=== PATIENT | female | born 1960 | race Caucasian/White ===

== ENCOUNTER → 2016-05-17 | Outpatient (CLI) | payer OTHER ==
[~2016-05-17] MED LIST: IOPAMIDOL (ISOVUE-300) 100 ML BTL IV ONE
--- NOTE | 2016-05-17 16:59 | CT ---
CT Scan of the Abdomen and Pelvis (With Contrast) at 1251 hours History: K43.9, ventral hernia, multiple abdominal surgeries. Technique: Axial computed tomographic images of the abdomen and pelvis were obtained, with the uneve ntful intravenous administration of 90 mL Isovue-300 contrast. Additional oral contrast given. Dose reduction techniques were utilized. Comparison: CT January 2016. CT Abdomen Findings: Lung bases: Patchy atelectasis bilateral lower lobes, without pleural effusion. Small hiatal hernia. Large right-sided periumbilical abdominal wall hernia, with a defect measuring 3 cm, and 7 cm of small bowel extending through the hernia defect into the subcutaneous soft tissues. No evidence of small bowel obstruction, wall thickening, or strangulation. Liver: Fatty infiltration in the medial segment of the left lobe of the liver, similar to previous s tudies. Biliary system: No obstruction. Spleen: Normal. Pancreas: Normal. Adrenals: Normal. Kidneys: No obstruction or solid masses.. Abdominal Aorta: Mild atherosclerotic aorta, without aneurysm. No bowel obstruction, ascites, or significant retroperitoneal lymphadenopathy. Oral contrast in the stomach and small bowel extending into the colon, without obstruction. CT Pelvis Findings: Postsurgical scarring in the anterior deep subcutaneous soft tissues again noted . The bladder is unremarkable. No inguinal hernia. No significant adenopathy. No distal bowel obs truction. A few colonic diverticula, without diverticulitis. The appendix appears normal, without i nflammatory changes. No adnexal masses. Impression: 1. Right-sided periumbilical abdominal wall hernia, with small bowel loops extending through the her andrés defect. Recommend surgical consult. 2. No CT evidence of appendicitis, abscess, or bowel obstruction. 3. Small hiatal hernia.
== END ==
LOC: FIMAGING 12:08
PROVIDERS: ATTEND Internal Medicine
DX: K42.9 Umbilical hernia without obstruction or gangrene (principal)
CPT/HCPCS: Q9967

== ENCOUNTER → 2016-12-24 | Outpatient (CLI) | payer OTHER | LOC: FIMAGING 12:47 | PROVIDERS: ATTEND Internal Medicine | DX: Z12.31 Encounter for screening mammogram for malignant neoplasm of breast (principal); Z80.3 Family history of malignant neoplasm of breast | CPT/HCPCS: G0202 ==

== ENCOUNTER 2017-04-11 03:49 | Observation (INO) | payer OTHER ==
--- NOTE | 2017-04-11 03:52 | EDPHY ---
H & P HPI/ROS: HPI CHIEF COMPLAINT: Abdominal pain, nausea, vomiting HISTORY OF PRESENT ILLNESS: Patient is a pleasant 56-year-old female, history of multiple SBO, extensive abdominal surgery, presents emergency room at 4 o' clock in the morning with nausea/vomiting and abdominal pain. Patient reports around 930 year 10:00 p.m. this evening she developed some abdominal discomfort with associated nausea. She started vomiting around 1:00 a.m. and then again at 2:00 a.m. and then again at 3:00 a.m.. Due to the persistent vomiting and abdominal discomfort he decided come the emergency room as she thinks she may have a bowel obstruction. She does report that approximately 2 hr ago she did have a loose bowel movement. Additionally she ate and apple, cheese, pumpkin seeds and gummy bears this evening. Unclear if this is causing her GI upset. Denies any fever recent illness. Denies cough. Denies urinary symptoms. Past Medical History: History of small-bowel obstruction, multiple abdominal surgeries, hernia repair, fistula , partial colectomy Past Surgical History: Multiple abdominal surgeries Social History: Denies daily use of drugs alcohol tobacco. Family History: Noncontributory. ROS REVIEW OF SYSTEMS: A comprehensive 10 point review of systems is otherwise negative aside from elements mentioned in the history of present illness. Exam Constitutional appears nontoxic triage nursing summary reviewed, vital signs reviewed, awake/alert. Eyes normal conjunctivae and sclera, EOMI, PERRLA. HENT normal inspection, atraumatic, moist mucus membranes, no epistaxis, neck supple/ no meningismus, no raccoon eyes. Respiratory clear to auscultation bilaterally, normal breath sounds, no respiratory distress, no wheezing. Cardiovascular rate normal, regular rhythm, no murmur, no edema, distal pulses normal. Gastrointestinal soft abdomen, nondistended, hypoactive bowel sounds, multiple incision lines that are old. I do not appreciate significant tenderness or peritoneal signs on exam but is mildly tender throughout. Genitourinary no CVA tenderness. Musculoskeletal no midline vertebral tenderness, full range of motion, no calf swelling, no tenderness of extremities, no meningismus, good pulses, neurovascularly intact. Skin pink, warm, & dry, no rash, skin atraumatic. Neurologic awake, alert and oriented x 3, AAOx3, moves all 4 extremities equally, motor intact, sensory intact, CN II-XII intact, normal cerebellar, normal vision, normal speech. Psychiatric normal mood/affect. Heme/Lymph/Immune no lymphadenopathy. Differential diagnosis includes but is not limited to and in no particular order : Bowel obstruction, appendicitis, gallbladder disease, diverticulitis, colitis , enteritis, perforated viscus, gastritis, GERD, esophagitis, urinary tract infection, pyelonephritis, kidney stones Medical Decision Making: Plan for this patient IV establishment IV fluid bolus 1 L normal saline, IV Zofran 4 mg for nausea, IV Dilaudid 1 mg for pain control , check basic blood work including lactic acid, UA, coags, will proceed with CT scan abdomen pelvis with IV contrast rule out acute obstruction or intra- abdominal process. Re-evaluation: 0535AM: CT scan abdomen pelvis with IV contrast called to me by Dr. Taveras. Shows a very large ventral abdominal wall hernia with bowel containing in this hernia there appears to be a kinking of bowel as it enters the hernia with distal small-bowel that is completely decompressed and proximal small bowel that is dilated. This concerning for mechanical bowel obstruction. No free air no free fluid. 0535AM: Will consult General surgery due to most likely mechanical bowel obstruction from a large ventral abdominal wall hernia. 0535AM: Patient has not had any vomiting here. Stomach is decompressed on CT scan. Patient has received IV fluids, Zofran and Dilaudid. She is resting at this time. Lactic acid was noted to be slightly elevated. Will repeat after IV fluids. Plan will be for admission to the hospital for small-bowel obstruction with surgical evaluation. 0540: Spoke with General surgery Dr. Winkler will see and evaluate the patient. 0604AM: Spoke with Odin Fletcher who will admit her to medicine service. Surgical consult. NPO. 0636AM: Dr. Winkler seen evaluated the patient. She is able to gently reduce this large right-sided ventral hernia. She is resting comfortably at this time. Patient be admitted to the hospitalist service for IV fluids and p.o. pain control and observation. Source: Patient - Medical/Surgical History Hx Asthma: No Hx Chronic Respiratory Disease: No Hx Diabetes: No Hx Cardiac Disease: No Hx Renal Disease: No Hx Cirrhosis: No Hx Alcoholism: No Hx HIV/AIDS: No Hx Splenectomy or Spleen Trauma: No Other PMH: pmh: hernias, uterine CA 2013. psh: hysterectomy, RECTAL FISTULA repair, repair of bladder rupture and fistula, hernia repairX3, full abd mesh for hernias x2, colectomy - Social History Smoking Status: Never smoked Constitutional: Initial Vital Signs Temperature (C) 36.5 C 04/11/17 03:51 Heart Rate 99 04/11/17 03:51 Respiratory Rate 20 04/11/17 03:51 Blood Pressure 140/81 H 04/11/17 03:51 O2 Sat (%) 90 L 04/11/17 03:51 O2 Delivery Mode Room Air O2 (L/minute) 2 Allergies/Adverse Reactions: adhesive tape Allergy (Verified 04/11/17 07:45) Sulfa (Sulfonamide Antibiotics) Allergy (Verified 04/11/17 07:45) Rash Home Medications: Medication Instructions Recorded metroNIDAZOLE 0.75% [Metrocream 1 keshav TP BID #0 cream 01/23/16 0.75%] Acetaminophen [Tylenol 325mg (*)] 325 mg PO DAILY PRN 04/11/17 Cholecalciferol Vit D3 [Vitamin D3 1,000 units PO DAILY 04/11/17 (*)] Multivitamins [Multivitamin (*)] 1 each PO DAILY 04/11/17 [place]-3 Fatty Acids [Fish Oil 1000 1,000 mg PO DAILY 04/11/17 mg (*)] Psyllium Husk (with Sugar) 1 each PO HS 04/11/17 [Metamucil Packet] Medical Decision Making - Data Points Laboratory Results: Laboratory Results 04/11/17 04:22 04/11/17 04:22 Medications Given: Discontinued Medications Acetaminophen (Tylenol) 650 mg PO Q4HRS PRN PRN Reason: Pain, Mild/Fever, Can Take PO Stop: 10/08/17 08:49 Last Admin: 04/11/17 10:58 Dose: 650 mg Hydromorphone HCl (Dilaudid) 1 mg IVP EDNOW ONE Stop: 04/11/17 03:56 Last Admin: 04/11/17 04:17 Dose: 1 mg Sodium Chloride (Ns) 1,000 mls @ 0 mls/hr IV EDNOW ONE; Wide Open PRN Reason: Protocol Stop: 04/11/17 03:56 Last Admin: 04/11/17 04:17 Dose: 1,000 mls Sodium Chloride (Ns) 1,000 mls @ 0 mls/hr IV ONCE ONE PRN Reason: Wide Open Stop: 04/11/17 04:34 Last Admin: 04/11/17 04:42 Dose: 1,000 mls Dextrose/Sodium Chloride (D5w 1/2 Ns) 1,000 mls @ 125 mls/hr IV CONT VIN Stop: 10/08/17 07:59 Last Admin: 04/11/17 08:07 Dose: 1,000 mls Metronidazole (Metrocream 0.75%) 1 keshav TP BID VIN Stop: 10/08/17 08:59 Last Admin: 04/11/17 11:05 Dose: Not Given Ondansetron HCl (Zofran) 4 mg IVP EDNOW ONE Stop: 04/11/17 03:56 Last Admin: 04/11/17 04:18 Dose: 4 mg Departure - Departure Disposition: [facility] Acute Clinical Impression: Abdominal wall hernia, SBO (small bowel obstruction) Abdominal pain Qualifiers: Abdominal location: unspecified location Qualified Code(s): R10.9 - Unspecified abdominal pain Condition: Fair
[2017-04-11] MEDS ORDERED: HYDROmorphONE/DILAUDID 1 MG/ML INJ IVP ONE (03:55)
[2017-04-11] MEDS ORDERED: ONDANSETRON 4 MG/2 ML VIAL IVP ONE (03:55)
[2017-04-11] MEDS ORDERED: NS 1,000 ML IV ONE ×2 (03:55→04:33)
[2017-04-11 04:31] LABS: PLATELET COUNT 245 10^3/uL (150-400)
[2017-04-11] MEDS ORDERED: IOPAMIDOL (ISOVUE-300) 100 ML BTL ONE (04:31)
[2017-04-11 04:42] LABS: INR 0.84 (0.83-1.16); PROTIME(PATIENT) 11.7 SEC (12.0-15.0)
[2017-04-11] MEDS ORDERED: D5W 1/2 NS 1,000 ML IV SCH (08:00)
[2017-04-11] MEDS ORDERED: ONDANSETRON 4 MG/2 ML VIAL IVP PRN (08:50)
[2017-04-11] MEDS ORDERED: ACETAMINOPHEN 325 MG TAB PO PRN (08:50)
[2017-04-11] MEDS ORDERED: ONDANSETRON DISINTEGRATING 4 MG TAB PO PRN (08:50)
--- NOTE | 2017-04-11 08:50 | SOAPPROG ---
SOAP Progress Note Assessment/Plan: Assessment: Plan: 04/11/17 08:48 ventral hernia with small and large bowel involvement. Reduction in the ER may have been effective at reducing blockage. She knows she will eventually need this large symptomatic defect to be repaired. Surgical consult with Dr Winkler is pending. Prior surgery with Dr Tsang in [place]. Will await consult before trying clears. Consider abdominal wall binder for support if defect and pain symptoms remain to be improved. Subjective: The patient had intense RLQ pain with vomiting which eventually took her to the ER last night. She has had 6 total abdominal surgeries. Most recent was last spring for a large ventral hernia defect repair. Pain is currently much better. No sense of n/v at the moment. Last dose of pain medication was dilaudid 4 hours ago. No f/c Objective: Vital Signs Temp Pulse Resp BP Pulse Ox 36.8 C 91 16 118/89 H 95 04/11/17 06:52 04/11/17 06:52 04/11/17 06:52 04/11/17 06:52 04/11/17 06:52 04/10/17 04/11/17 04/12/17 05:59 05:59 05:59 Intake Total 0 Balance 0 PT 11.7 SEC (12.0-15.0) L 04/11/17 04:22 INR 0.84 (0.83-1.16) 04/11/17 04:22 Gen: pleasant, NAD, intermittently teary Lungs: CTAB Heart: RRR Abd + bs soft, mild-mod RLQ TTP at superior end of abdominal wall defect. no rebound or guarding LE's without edema CT--large ventral hernia defect with small and large bowel involvement. ICD10 Worksheet Patient Problems: Problems Problem Status Onset Abdominal pain Acute Abdominal wall hernia Acute Small bowel obstruction Acute
[2017-04-11] MEDS ORDERED: METRONIDAZOLE 0.75% 45 GM CREAM TP SCH (09:00)
--- NOTE | 2017-04-11 09:17 | GCON ---
[f rep st] CONSULTATION DATE OF CONSULTATION: 04/11/2017 CHIEF COMPLAINT: Abdominal pain. HISTORY OF PRESENT ILLNESS: This is a 56-year-old female, known to me from a hospitalization in late 2015. Briefly, at that point in time, had a small- bowel obstruction, likely secondary to a recent small-bowel resection and primary anastomosis. Since that time, she states that she has felt well. She followed up with her previous hernia surgeon down in [place], and actually had a repeat procedure in June of this year to fix her remaining ventral hernia. She states that since that time, she has felt well. She does endorse having a right-sided lower abdominal bulge since that procedure, and stated that it has not really changed since that time. She presents to the emergency department today complaining of right-sided abdominal pain adjacent to that bulge, in addition to nausea without vomiting. In the emergency department, she is tearful. She is here complaining of the pain which she describes as crampy and worse with palpation without radiation, 7 out of 10 in intensity at its worst. Other than that, she had a bowel movement at 2 a.m. today. She has not passed flatus since that time. She states that her nausea is improved with IV hydration and narcotic pain medication, but she still complains of pain. Other than that, she states that she feels well. She denies having any fevers or chills. 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 PAST SURGICAL HISTORY: Robotic-assisted total abdominal history with BSO, complicated by rectovaginal fistula. 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 She subsequently ended up having multiple ventral hernias, which have been repaired, one in December of 2015, and the most recent of which was in June of 2016. CURRENT MEDICATIONS: Reviewed. SOCIAL HISTORY: Denies tobacco use. Social drinker. She is . Her is at the bedside today, again. REVIEW OF SYSTEMS: A full 10-point review today was performed. PHYSICAL EXAM: VITAL SIGNS: Heart rate 91, blood pressure 118/89. She is currently 95% on room air, and her temperature is 36.8 degrees centigrade. CONSTITUTIONAL: She is teary-eyed but in no acute distress. She does not appear anxious. EYES: Her pupils are equal, round, reactive to light. Her extraocular movements are intact. EARS, NOSE, MOUTH, AND THROAT: She has dry mucous membranes. Her dentition is normal. Her hearing is normal. CARDIOVASCULAR: She has a regular rate and rhythm without murmurs. LUNGS: Clear to auscultation, without any palpable crepitus. GI: She has a large lower midline ventral hernia bulging into her right abdomen. I put her in gentle Trendelenburg in the emergency department, and successfully reduced the entire hernia contents back in. She has no rebound tenderness or guarding. Her midline incision is well healed. SKIN: Warm. Normal color. No rashes. MUSCULOSKELETAL: Full strength. No weakness. Normal joint range of motion. NEURO: She is alert and oriented x3. Her cranial nerves are intact. She has no weakness, no numbness. PSYCH: She is interacting appropriately. She is a little bit teary-eyed, but she is not anxious or encephalopathic. LYMPH, HEME, AND IMMUNOLOGIC: No appreciable lymphadenopathy appreciated. LABS: White blood cell count normal at 8, H and H 14 and 42. Chemistry unremarkable with the exception of an elevated glucose at 156. IMAGING STUDIES: CT scan of her abdomen and pelvis, the images of which were personally reviewed, show a large recurrent midline ventral hernia measuring approximately 8 x 7 cm, containing both small-bowel and colon. No free fluid. No free air. No signs of bowel compromise. ASSESSMENT AND PLAN: A 56-year-old female with recurrent ventral hernia, status post successful reduction of hernia in the emergency department. Given her successful reduction, I do not feel that she needs urgent operative intervention, as I was successfully able to reduce it and give her some relief in her pain. I do feel that she will need this addressed, but not on an urgent basis. At any rate, she also was to follow up with her surgeon in [place] to get his recommendations for definitive repair, as well. She will subsequently be admitted, as I do think she does have a little bit of a small-bowel obstruction, for hydration. I would give her ice chips only until she is ready to have a diet, which I do not think would be appropriate until she has a little bit more bowel function today, but I do anticipate that we will be able to discharge her within the next day or so, have her follow up with either me or her surgeon down in [place] for definitive hernia repair, given successful reduction and no signs of incarceration today. Will follow along with you during her hospitalization /[id number]/MODL MTDD
--- NOTE | 2017-04-11 09:27 | GHP ---
[f rep st] HISTORY AND PHYSICAL DATE OF ADMISSION: 04/11/2017 REASON FOR ADMISSION: Confirmed for small-bowel obstruction/right lower quadrant abdominal pain. HISTORY OF PRESENT ILLNESS: Ms. Main is a 56-year-old female with a complicated abdominal surgica l history. She has had previous surgeries x6 for various abdominal wall hernias. Most recently was last spring with Dr. Tsang in [place]. She had a large right-sided ventral hernia repair with exte nsive mesh for bolstering the defect. Unfortunately, last night she had gradual intensification of p ainful symptoms in the right lower quadrant area at the superior edge of her ventral hernia defect. This intensified. She had vomiting, eventually went to the ER. She had a CT which identified a copi ous quantity of small and some large bowel dipping into the ventral wall sac. This was attempted to be manually reduced in the ER with probable success. The patient has not had pain medicine in 4 hour s and currently feels better. She does not have fever or chills. No nausea or vomiting. She is not particularly hungry. She had several episodes of loose stool yesterday, but none since her current hospitalization. She currently feels more optimistic that this was a transient flare. She knows rachael t she will ultimately need her abdominal wall hernia defect fixed given the intermittent symptoms she is having. She is currently optimistic that she will hopefully be able to go home later today. PAST MEDICAL HISTORY: Surgery x6 in abdominal regions for various abdominal wall defects as noted ab alverto. She is otherwise fairly healthy. MEDICATION: List is currently supplements and topical medication for rosacea. FAMILY HISTORY: Mother had complicated intermittent abdominal pain but did not have hernia small def ects. SOCIAL HISTORY: She does not drink or smoke. She has been regular with exercises, improving her ove rall condition. She is . REVIEW OF SYSTEMS: GENERAL: No fever or chills. No unusual headaches. Denies any unusual nose, th roat or sinus congestion. Denies neck pain. Denies shortness of breath, cough, wheeze or congestion . No chest pain or palpitation. GI: As per HPI. Currently improved. Urinary, no current complain ts. SKIN: No acute issues. MUSCULOSKELETAL: No new complaints. PHYSICAL EXAM: VITAL SIGNS: Afebrile. Blood pressure between 118/89 to 146/92. Saturation between 90 room air and 95% on 3 L. Heart rate in the 90s, respiratory rate 16 to 20. GENERAL: Pleasant f emale, intermittently teary. No current distress. HEENT: Oropharynx benign. NECK: Without masses . No jugular venous pressure elevation. LUNGS: Clear without crackles, wheeze or congestion, cough is dry. HEART: Regular rate and rhythm without murmur. ABDOMEN: Positive bowel sounds. Soft. M ild to moderate tenderness in the right lower quadrant region. No clear guarding or rebound. BREAST /PELVIC: Deferred. SKIN: Warm, dry, intact. LOWER EXTREMITIES: Without edema. LABORATORY DATA: Normal white blood cell count. Urinalysis is negative. INR is normal. Initial la ctic acid was elevated and recheck was normal. Metabolic panel aside from mildly elevated glucose an d mildly elevated ALT is normal. Lipase and amylase are also normal. CT shows a large amount of sma ll and some large bowel into her ventral wall defect. There is decompressed large bowel beyond the a shyann in question. ASSESSMENT: Abdominal pain, likely related to probable partial small-bowel obstruction due to large hernia wall defect. I suspect this has been reduced successfully in the ER given resolution of pain, nausea, vomiting and the patient is optimistic that this is the case. She will have surgical consul tation with Dr. Damon Winkler who has seen the patient in the past. It is hoped that we can advanc e her diet and to go home today. She may benefit from an abdominal wall binder for additional abdomi nal wall support until she considers surgical revision. She currently has her granddaughter coming t o visit her where she will be the primary caregiver for an extended period of time in the early porti on of May. She would like to get this obligation taken care before proceeding with surgery. Floyd elise is otherwise doing fairly well. /[id number]/MODL
[2017-04-11 10:22] VITALS: RESP 18; O2SAT 92
[2017-04-11 14:26] VITALS: BP 135/79; PULSE 102; TEMP 98.1
--- NOTE | 2017-04-11 16:36 | SOAPPROG ---
[facility] Progress Note Assessment/Plan: Assessment: Plan: 04/11/17 08:48 ventral hernia with small and large bowel involvement. Reduction in the ER may have been effective at reducing blockage. She knows she will eventually need this large symptomatic defect to be repaired. Surgical consult with Dr Winkler is pending. Prior surgery with Dr Tsang in [place]. Will await consult before trying clears. Consider abdominal wall binder for support if defect and pain symptoms remain to be improved. 04/11/17 16:36 doing well, will d/c home. Objective: Vital Signs Temp Pulse Resp BP Pulse Ox 36.7 C 102 H 18 135/79 H 92 04/11/17 14:26 04/11/17 14:26 04/11/17 14:26 04/11/17 14:26 04/11/17 14:26 04/10/17 04/11/17 04/12/17 05:59 05:59 05:59 Intake Total 0 Balance 0 PT 11.7 SEC (12.0-15.0) L 04/11/17 04:22 INR 0.84 (0.83-1.16) 04/11/17 04:22 ICD10 Worksheet Patient Problems: Problems Problem Status Onset Abdominal pain Acute Abdominal wall hernia Acute Small bowel obstruction Acute
--- NOTE | 2017-04-11 19:39 | GDS ---
[f rep st] DISCHARGE SUMMARY REASON FOR ADMISSION: Acute right lower quadrant pain likely related to trapped bowel and a ventral wall hernia. DISCHARGE DIAGNOSES: Acute right lower quadrant pain likely related to trapped bowel and a ventral w all hernia. HOSPITAL COURSE: Patient was admitted to the ER. She had CT findings showing large quantities of sm all bowel and some large bowel trapped in her ventral hernial wall defect. This was reduced in the e mergency room by Dr. Winkler. After that point, the patient has really done quite well. She has not required any IV narcotics. Sh gosia has been able to tolerate a clear liquid diet, then a regular diet, at this point, feels comfortabl e going home. She has not had any fever or chills. She understands at some point this hernia wall d efect will need to be surgically repaired. She has plans to do that after her visit with her grandda omar in May. At this point, she will be discharged home in improved condition. She will continue on her regular m edicines, which are primarily supplements and topical metronidazole. She will have outpatient follow up with Dr. Margo Garcia in the next week or so. /[id number]/MODL
== END 2017-04-11 17:11 | disposition home or self-care (01) ==
LOC: INTOOBSV 06:05 → F3E 06:44
PROVIDERS: ADMIT Internal Medicine; ATTEND Internal Medicine
PROC: 0WQFXZZ Repair Abdominal Wall, External Approach (ICD-10-PCS; principal; 2017-04-11)
DX: K43.0 Incisional hernia with obstruction, without gangrene (principal); R10.31 Right lower quadrant pain; Z85.42 Personal history of malignant neoplasm of other parts of uterus; Z90.49 Acquired absence of other specified parts of digestive tract
CPT/HCPCS: 49999; 74177; G0378; 96374; J1170; J2405; Q9967

== ENCOUNTER → 2017-04-18 | Outpatient (CLI) | payer OTHER | LOC: FIMAGING 08:54 | PROVIDERS: ATTEND Internal Medicine | DX: Z03.89 Encounter for observation for other suspected diseases and conditions ruled out (principal); G47.33 Obstructive sleep apnea (adult) (pediatric) ==

== ENCOUNTER → 2018-02-17 | Outpatient (CLI) | payer OTHER | LOC: FIMAGING 13:54 | PROVIDERS: ATTEND Internal Medicine | DX: R91.1 Solitary pulmonary nodule (principal) ==

== ENCOUNTER 2018-08-06 07:46 | Emergency (ER) | payer OTHER ==
[2018-08-06] MEDS ORDERED: ONDANSETRON 4 MG/2 ML VIAL IVP ONE (08:11)
[2018-08-06] MEDS ORDERED: NS 1,000 ML IV ONE (08:11)
[2018-08-06] MEDS ORDERED: KETOROLAC 30 MG/1 ML SDV IVP ONE (08:11)
--- NOTE | 2018-08-06 08:18 | EDPHY ---
H & P Stated Complaint: n/v hx freq intestinal blockages Time Seen by Provider: 08/06/18 08:04 HPI/ROS: CHIEF COMPLAINT: Abdominal pain, vomiting HISTORY OF PRESENT ILLNESS: Patient is a 58-year-old female with a history of multiple small-bowel obstructions. She was initially treated for uterine cancer but had to have multiple repeat surgeries for ventral hernia repair, rectovaginal fistula and cystovaginal fistulas. Throughout this time she has had multiple small bowel obstructions all of which have resolved without surgery. She states that around 4:00 a.m. She began having increased abdominal pain. She has vomited 3 times. She has not been passing gas. She has had gradually increased pain. She states that this is very similar to previous small-bowel obstructions. Most recent surgery was a ventral hernia repair in March. No fever. No chest pain or shortness of breath. Severity: Moderate Modifying factors: None REVIEW OF SYSTEMS: Constitutional: denies: chills, fever, recent illness, recent injury EENTM: denies: blurred vision, double vision, nose congestion Respiratory: denies: cough, shortness of breath Cardiac: denies: chest pain, irregular heart rate, lightheadedness, palpitations Gastrointestinal/Abdominal: See HPI Genitourinary: denies: dysuria, frequency, hematuria, pain Musculoskeletal: denies: joint pain, muscle pain Skin: denies: lesions, rash, jaundice, bruising Neurological: denies: headache, numbness, paresthesia, tingling, dizziness, weakness Hematologic/Lymphatic: denies: blood clots, easy bleeding, easy bruising Immunologic/allergic: denies: HIV/AIDS, transplant 10 systems reviewed and negative except as noted EXAM: GENERAL: Well-appearing, well-nourished and in no acute distress. HEAD: Atraumatic, normocephalic. EYES: Pupils equal round and reactive to light, extraocular movements intact, sclera anicteric, conjunctiva are normal. ENT: TMs normal, nares patent, oropharynx clear without exudates. Moist mucous membranes. NECK: Normal range of motion, supple without lymphadenopathy or JVD. LUNGS: Breath sounds clear to auscultation bilaterally and equal. No wheezes rales or rhonchi. HEART: Regular rate and rhythm without murmurs, rubs or gallops. ABDOMEN: Multiple old scars all well healed, mild distention, no focal tenderness. BACK: No CVA tenderness, no spinal tenderness, step-offs or deformities EXTREMITIES: Normal range of motion, no pitting or edema. No clubbing or cyanosis. NEUROLOGICAL: Cranial nerves II through XII grossly intact. Normal speech, normal gait. 5/5 strength, normal movement in all extremities, normal sensation , normal reflexes PSYCH: Normal mood, normal affect. SKIN: Warm, dry, normal turgor, no visible rashes or lesions. Source: Patient Exam Limitations: No limitations - Personal History Current Tetanus Diphtheria and Acellular Pertussis (TDAP): Yes - Medical/Surgical History Hx Asthma: No Hx Chronic Respiratory Disease: No Hx Diabetes: No Hx Cardiac Disease: No Hx Renal Disease: No Hx Cirrhosis: No Hx Alcoholism: No Hx HIV/AIDS: No Hx Splenectomy or Spleen Trauma: No Other PMH: pmh: hernias, uterine CA 2013. psh: hysterectomy, RECTAL FISTULA repair, repair of bladder rupture and fistula, hernia repairX3, full abd mesh for hernias x2, colectomy - Family History Significant Family History: No pertinent family hx - Social History Smoking Status: Never smoked Alcohol Use: Sober Drug Use: None Constitutional: Initial Vital Signs Temperature (C) 36.5 C 08/06/18 07:50 Heart Rate 94 08/06/18 07:50 Respiratory Rate 17 08/06/18 07:50 Blood Pressure 130/94 H 08/06/18 07:50 O2 Sat (%) 94 08/06/18 07:50 O2 Delivery Mode Room Air Allergies/Adverse Reactions: adhesive tape Allergy (Verified 08/06/18 07:50) Sulfa (Sulfonamide Antibiotics) Allergy (Verified 08/06/18 07:50) Rash Home Medications: Medication Instructions Recorded metroNIDAZOLE 0.75% [Metrocream 1 keshav TP BID #0 cream 01/23/16 0.75%] Acetaminophen [Tylenol 325mg (*)] 325 mg PO DAILY PRN 04/11/17 Cholecalciferol Vit D3 [Vitamin D3 1,000 units PO DAILY 04/11/17 (*)] Multivitamins [Multivitamin (*)] 1 each PO DAILY 04/11/17 Holland-3 Fatty Acids [Fish Oil 1000 1,000 mg PO DAILY 04/11/17 mg (*)] Psyllium Husk (with Sugar) 1 each PO HS 04/11/17 [Metamucil Packet] Ondansetron Odt [Zofran Odt 4 mg 4 mg PO Q4 PRN #20 tab 08/06/18 (RX)] Medical Decision Making - Diagnostics EKG Interpretation: An EKG obtained and was read and documented in trace view. Please see trace view for full reading and report. Sinus rhythm, no acute ischemic changes Imaging Results: Imaging Impressions Abdomen X-Ray 08/06/18 08:13 Impression: 1. Mildly dilated small bowel midabdomen with air-fluid levels suggestive of mild partial SBO or mild ileus. 2. Mild fibrotic streaks at the left base. Imaging: Discussed imaging studies w/ call center director Radiologist ED Course/Re-evaluation: 10:00 a.m. we discussed at length the patient's test results. I told her she likely has a another small-bowel obstruction. She is feeling significantly better after the Zofran and Toradol and actually would like to go home. She has been through several small-bowel obstructions and has been able to advance her diet in the past at home. We discussed indications for returning to the hospital including inability to advance her diet, worsening pain despite medications and lack of improvement of her symptoms after 24-48 hours. Also fevers etc. She and her feel comfortable with this plan. They need a refill on Zofran but have oxycodone and ibuprofen at home. Abdominal exam currently nontender. 10:15 a.m. I discussed the case with Margo Meyer who will follow up with the patient and agrees with the plan. Differential Diagnosis: Partial list of the Differential diagnosis considered include but were not limited to; small-bowel obstruction, gastroenteritis and although unlikely based on the history and physical exam, I also considered ischemia, volvulus, internal hernia. I discussed these differential diagnoses and the plan with the patient as well as the usual and expected course. The patient understands that the diagnosis is provisional and that in medicine we are not always correct and that further workup is often warranted. Usual and customary warnings were given. All of the patient's questions were answered. The patient was instructed to return to the emergency department should the symptoms at all worsen or return, otherwise to followup with the physician as we discussed. - Data Points Laboratory Results: Laboratory Results 08/06/18 08:05 08/06/18 08:05 08/06/18 08/06/18 08:05 08:05 WBC 9.22 10^3/uL 10^3/uL (3.80-9.50) RBC 4.99 10^6/uL 10^6/uL (4.18-5.33) Hgb 15.5 g/dL g/dL (12.6-16.3) Hct 45.7 % % (38.0-47.0) MCV 91.6 fL fL (81.5-99.8) MCH 31.1 pg pg (27.9-34.1) MCHC 33.9 g/dL g/dL (32.4-36.7) RDW 13.5 % % (11.5-15.2) Plt Count 328 10^3/uL 10^3/uL (150-400) MPV 8.4 fL L fL (8.7-11.7) Neut % (Auto) 83.7 % H % (39.3-74.2) Lymph % (Auto) 8.8 % L % (15.0-45.0) [place]bour % (Auto) 6.4 % % (4.5-13.0) Eos % (Auto) 0.3 % L % (0.6-7.6) Baso % (Auto) 0.3 % % (0.3-1.7) Nucleat RBC Rel Count 0.0 % % (0.0-0.2) Absolute Neuts (auto) 7.71 10^3/uL H 10^3/uL (1.70-6.50) Absolute Lymphs (auto) 0.81 10^3/uL L 10^3/uL (1.00-3.00) Absolute Monos (auto) 0.59 10^3/uL 10^3/uL (0.30-0.80) Absolute Eos (auto) 0.03 10^3/uL 10^3/uL (0.03-0.40) Absolute Basos (auto) 0.03 10^3/uL 10^3/uL (0.02-0.10) Absolute Nucleated RBC 0.00 10^3/uL 10^3/uL (0-0.01) Immature Gran % 0.5 % % (0.0-1.1) Immature Gran # 0.05 10^3/uL 10^3/uL (0.00-0.10) Sodium 135 mEq/L mEq/L (135-145) Potassium 4.9 mEq/L mEq/L (3.5-5.2) Chloride 101 mEq/L mEq/L (97-110) Carbon Dioxide 22 mEq/l mEq/l (22-31) Anion Gap 12 mEq/L mEq/L (6-14) BUN 19 mg/dL mg/dL (7-23) Creatinine 0.9 mg/dL mg/dL (0.6-1.0) Estimated GFR > 60 Glucose 135 mg/dL H mg/dL (70-100) Calcium 10.5 mg/dL H mg/dL (8.5-10.4) Total Bilirubin 0.4 mg/dL mg/dL (0.1-1.4) Conjugated Bilirubin 0.2 mg/dL mg/dL (0.0-0.5) Unconjugated Bilirubin 0.2 mg/dL mg/dL (0.0-1.1) AST 25 IU/L IU/L (14-46) ALT 42 IU/L IU/L (9-52) Alkaline Phosphatase 94 IU/L IU/L (38-126) Total Protein 7.5 g/dL g/dL (6.3-8.2) Albumin 4.7 g/dL g/dL (3.5-5.0) Lipase 68 IU/L IU/L (23-300) Medications Given: Discontinued Medications Sodium Chloride (Ns) 1,000 mls @ 0 mls/hr IV EDNOW ONE; Wide Open PRN Reason: Protocol Stop: 08/06/18 08:12 Last Admin: 08/06/18 08:21 Dose: 1,000 mls Ketorolac Tromethamine (Toradol) 15 mg IVP EDNOW ONE Stop: 08/06/18 08:12 Last Admin: 08/06/18 08:21 Dose: 15 mg Ondansetron HCl (Zofran) 4 mg IVP EDNOW ONE Stop: 08/06/18 08:12 Last Admin: 08/06/18 08:21 Dose: 4 mg Departure - Departure Disposition: Home, Routine, Self-Care Clinical Impression: Small bowel obstruction Condition: Fair Instructions: Ondansetron (By mouth), Bowel Obstruction (ED) Referrals: Margo Garcia MD [Primary Care Provider] - 1-2 days without fail Prescriptions: Ondansetron Odt [Zofran Odt 4 mg (RX)] 4 mg PO Q4 PRN #20 tab PRN Reason: Nausea & Vomiting
[2018-08-06 08:25] LABS: PLATELET COUNT 328 10^3/uL (150-400)
--- NOTE | 2018-08-06 08:54 | CPEKG ---
Test Reason : OPEN Blood Pressure : / mmHG Vent. Rate : 086 BPM Atrial Rate : 086 BPM P-R Int : 148 ms QRS Dur : 086 ms QT Int : 374 ms P-R-T Axes : 063 055 037 degrees QTc Int : 448 ms Sinus rhythm Confirmed by Rafi León ([id number]) on 08/06/2018 8:53:59 AM Referred By: RAFI LEÓN Confirmed By:Rafi León
[2018-08-06 10:47] VITALS: BP 118/76
[2018-08-06] MEDS ORDERED: IOPAMIDOL (ISOVUE-300) 100 ML BTL ONE (23:33)
== END 2018-08-06 10:56 | disposition home or self-care (01) ==
DX: K56.609 Unspecified intestinal obstruction, unspecified as to partial versus complete obstruction (principal); R11.10 Vomiting, unspecified; E86.9 Volume depletion, unspecified; Z85.42 Personal history of malignant neoplasm of other parts of uterus
CPT/HCPCS: 96374; J1885; J2405; Q9967

== ENCOUNTER 2018-08-06 21:42 | Inpatient (IN) | payer OTHER | END 2018-08-10 15:53 | disposition home or self-care (01) | LOC: F2W 08-07 00:45 ==